=== PATIENT | female | born 2000 | race Two or more races ===

== ENCOUNTER 2024-03-23 12:33 | Outpatient (REF) | payer MEDICAID, SELFPAY ==
--- NOTE | ~2024-03-23 | XR_ITS ---
EXAMINATION: XR HAND, RIGHT CLINICAL INFORMATION: Right hand pain and swelling. Tenderness at the fifth metacarpal after trauma. Question boxer's fracture. COMPARISON: None available. TECHNIQUE: PA, lateral, and oblique views of the right hand. FINDINGS: There is an oblique transverse fracture of the fifth metacarpal shaft distally with slight apex dorsal and apex medial angulation with surrounding soft tissue swelling. No intra-articular extension. No additional fractures are identified. Joints appear well-preserved. No erosions. No soft tissue calcifications. XR/XR hand RT min 3V IMPRESSION: Oblique transverse fracture of the fifth metacarpal shaft with slight apex dorsal and apex medial angulation. Electronically signed by: Zechariah Gonzalez MD 03/23/2024 03:40 PM EDT RP
== END 2024-03-23 12:34 | disposition home or self-care (01) ==
LOC: HO.HHCX 12:33
PROVIDERS: Visit Provider Nurse Practitioner Family
DX: M79.641 Pain in right hand (principal)
CPT/HCPCS: 73130

== ENCOUNTER 2024-06-03 12:29 | Outpatient (REF) | payer MEDICAID, SELFPAY ==
[2024-06-04 14:48] LABS: Adenovirus PCR Not Detected (Not Detect.); Bordetella parapertussis PCR Not Detected (Not Detect.); Bordetella pertussis PCR Not Detected (Not Detect.); Chlamydia pneumoniae PCR Not Detected (Not Detect.); Coronavirus 229E PCR Not Detected (Not Detect.); Coronavirus HKU1 PCR Not Detected (Not Detect.); Coronavirus NL63 PCR Not Detected (Not Detect.); Coronavirus OC43 PCR Not Detected (Not Detect.); Human metapneumovirus PCR Not Detected (Not Detect.); Influenza A PCR Not Detected (Not Detect.); Influenza B PCR Not Detected (Not Detect.); Mycoplasma pneumoniae PCR Not Detected (Not Detect.); Parainfluenza 1 PCR Not Detected (Not Detect.); Parainfluenza 2 PCR Not Detected (Not Detect.); Parainfluenza 3 PCR Not Detected (Not Detect.); Parainfluenza 4 PCR Not Detected (Not Detect.); RSV PCR Not Detected (Not Detect.); Rhino/Enterovirus PCR Not Detected (Not Detect.)
[2024-06-04 14:57] LABS: SARS-CoV-2 PCR Not Detected (Not Detect.)
== END 2024-06-03 12:30 | disposition home or self-care (01) ==
LOC: HO.HHCLNP 12:29
PROVIDERS: Visit Provider Emergency Medicine
DX: R05.9 Cough, unspecified (principal)
CPT/HCPCS: 87633

== ENCOUNTER 2024-06-04 09:36 | Outpatient (REF) | payer MEDICAID, SELFPAY ==
--- NOTE | ~2024-06-04 | XR_ITS ---
EXAMINATION: XR CHEST CLINICAL INFORMATION: Productive cough. Fever. COMPARISON: Most recent chest radiograph dated 09/23/2017. TECHNIQUE: 2 views of the chest were obtained. FINDINGS: Right middle lobe atelectasis versus early pneumonia, new when compared to the prior examination. No pleural effusion or pneumothorax. Stable cardiomediastinal silhouette. XR/XR chest 2V IMPRESSION: Right middle lobe atelectasis versus early pneumonia, new when compared to the prior examination. Electronically signed by: Arun Alicea MD 06/04/2024 03:01 PM GINGER
== END 2024-06-04 09:37 | disposition home or self-care (01) ==
LOC: HO.HHCX 09:36
PROVIDERS: Visit Provider Emergency Medicine
DX: R05.1 Acute cough (principal)
CPT/HCPCS: 71046

== ENCOUNTER 2025-04-06 11:49 | Outpatient (REF) | payer MEDICAID, SELFPAY ==
--- OUTSIDE RECORDS SUMMARY | 2025-04-06 14:55 | XMS_ITS | Clinical Summary ---
Author Organization [employer] Address [address] [place] [address] Care Team Providers Care Information Tech Name Role Phone Melisa Adhikari NP Primary Care Provider [phone] Allergies No known active allergies Medications Sod Fluoride-Potass ium Nitrate 1.1-5 % pasteIndication s:Dental caries Morning View teeth for 2 minutes, morning and night. Spit, do not rinse. Do not eat or drink anything for 30 minutes following brushing. 112 g 3 4 Active chlorhexidine (Peridex) 0.12 % solution Swish 15 mL morning and night for 1 minute. Spit, do not swallow. Do not eat or drink for 30 minutes following use. 473 mL 4 Active fluticasone (Flonase) 50 MCG/ACT nasal spray Administer 1 spray into each nostril Once per day for 14 days. 16 g 4 Active Spacer/Aero-Hol ding Chambers (OptiChamber Latosha) misc 1 each every 4 (four) hours if needed (asthma). 1 each 4 Active albuterol 108 (90 Base) MCG/ACT inhaler Inhale 2 puffs every 4 (four) hours if needed for wheezing or shortness of breath. 18 g 1 4 06/03/20 25 Active azithromycin (Zithromax Z-Hussain) 250 MG tablet Take 2 tablets once on day 1, then 1 tablet 1x/day for 4 days. 6 tablet 4 Active ibuprofen 800 MG tablet Take 1 tablet (800 mg) by mouth every 6 (six) hours if needed for mild pain. 90 tablet 1 4 03/25/20 25 Active Problems Problem Noted Date Diagnosed Date Complaint of panic attack 07/07/2024 Panic attacks 07/07/2024 Assessment & Plan (07/07/2024 6:13 PM EST): Pt with isolated bouts of sob and atypical chest pain, no baseline cardiac symptoms or hx Reviewed ddx of tachyarrythmia, resp source or panic. Pt associates these self limiting events with panic, will monitor. Denies baseline anxiety symptoms. Reviewed breathing exercises. Pt will record any additional episodes or symptoms. Should these bouts increase, will order holter. Subacute maxillary sinusitis 06/01/2024 Assessment & Plan (06/01/2024 4:00 PM EST): Most likely viral, she will start meds today, if not improve within 24h, she will start Augmentin x 7d. Rest (sleep at least 8 hours a night). Out of work tomorrow. Hydrate with plenty of water (avoid caffeine and alcohol). Use saline nose drops to loosen mucus + Flonase bid x 1w Take Acetaminophen (Tylenol )/Ibuprofen as needed to reduce fever, headache, body aches or discomfort Gargle with salt water and use throat sprays/lozenges for throat pain. Use heated, humidified air. If you do not have a humidifier, take hot showers. Boxer's metacarpal fracture, neck, closed 2023 Assessment & Plan (03/24/2024 2:41 PM EDT): Wet read consistent with boxer's fracture, Patient was splinted with a temporary splint provided by [facility] and added minal bandage for stabilization. [facility] to [facility] emergency room for fracture management and appropriate splinting. Right hand pain 03/23/2024 Assessment & Plan (03/23/2024 12:55 PM EDT): X-ray consistent with boxer's fracture, possibly displaced. Pt referred to ER, expect called, wrist brace applied, as well as modified minal bandage wrap. Encounters Date Type Department Care Team Description 03/31/2025 Telephone [facility] [address] [place] [phone] Melisa Adhikari NP 03/30/2025 Telephone [facility] [address] [place] [address] Melisa Adhikari NP from Last 3 Months Immunizations Immunization Administration Dates Next Due DTaP, 5 pertussis antigens 09/10/2003,,1999,05/31,1999 HPV, Quadrivalent 06/11/2012,12/10/2011,10/08/19 12 Hep A, ped/adol, 2 dose 04/21/2015,05/12/2014 Hep B, Adolescent or Pediatric 1999,1999,1999 Hep B, adult 07/02/2023 Hib (PRP-T) 04/17/2000, 0,1999,03/08 IPV 09/10/2003, 0,1999,03/08 Influenza injectable quadriv alent IIV4 with preservative 04/21/2015,05/12/2014 Influenza injectable quadriv alent preservative free 05/17/2020 Influenza, IIV3, injectable 05/17/2020 MMR 09/10/2003,01/17/2000 Meningococcal MCV4P ACYW-135 11/13/2016,10/05/19 11 Novel [id number], all formulations 05/20/2009 Pneumococcal Conjugate PCV 7 09/04/2000,04/17/20 00 Tdap 03/02/2020,10/04/2010 Varicella 10/15/2007,01/17/2000 Social History Tobacco Use Types Packs/Day Years Used Date Smoking Tobacco: Never Passive Smoke Exposure: Never Smokeless Tobacco: Never Tobacco Cessation:Counseling Given: Not Answered Alcohol Use Standard Drinks/Week Comments Not Currently 0 (1 standard drink = 0.6 oz pur e alcohol) Comments Unknown Sex and Gender Information Value Date Recorded Sex Assigned at Female 04/30/2022 10:33 AM EDT Legal Sex Female 10:33 AM EDT Gender Identity Female 09/16/2023 3:05 PM EDT Sexual Orientation Straight 09/16/2023 2: 51 PM EDT Last Filed Vital Signs Vital Sign Reading Time Taken Comments Blood Pressure 112/84 08/03/2024 4:50 PM EST Pulse 80 08/03/2024 4:50 PM EST Temperature 36.1 C (96.9 F) 08/03/2024 4:50 PM EST Respiratory Rate 18 08/03/2024 4:50 PM EST Oxygen Saturation 97% 08/03/2024 4:50 PM EST Inhaled Oxygen Concentration - - Weight 83 kg (183 lb) 08/03/2024 4:50 PM EST Height 166.4 cm (5' 5.5 ) 06/03/2024 7:41 PM EST Body Mass Index 29.99 06/03/2024 7:41 PM EST Plan of Treatment Upcoming Encounters Date Type Department Care Team (Late st Contact Info) Description 06/04/2025 1:45 PM EST Office Visit [facility] [address], [place] [phone] Melisa Adhikari NP [address], [place] [phone] Health Maintenance Due Date Last Done Comments Dental Prophylaxis 1999 Depression Screening 1999 HIV Screening 1999 SDOH Screening 1999 Disability Screening 1999 Alcohol/Substance Use Screening 2011 Family Planning (PISQ) 2014 Hepatitis C Screening 2017 Pap Smear 12/30/2023 12/29/2020 Dental Oral Exam 03/20/2024 09/17/2023 Dental X-Ray: Bitewings 09/17/2024 09/17/2023 COVID-19 Vaccine ( season) 2025 11/11/2020, 10/14/2020 Influenza Vaccine (#1) 2025 , 05/17/2020, 04/21/2015, Additional history exists Tobacco Screening 08/03/2025 08/03/2024 Dental X-Ray: Full Mouth 09/17/2026 09/17/2023, 10/31 DTaP/Tdap/Td Vaccines (8 - Td or Tdap) 03/02/2030 03/02/2020, 10/04/2010, 09/10/2003, Additional history exists Zoster Vaccines (1 of 2) 2049 RSV Patients and Patients Aged 60 years or older (1 - 1-dose 75+ series) 2074 HIB Vaccines Completed 04/17/2000, 09/1999, 1999, Additional history exists Pneumococcal Vaccine: Pediatrics (0 to 5 Years) and At-Risk Patients (6 to 49) Years Aged Out 09/04/2000, 04/17/2000 No longer eligibl e based on patient's age to complete this topic IPV Vaccines Completed 09/10/2003, 12/29, 1999, Additional history exists HPV Vaccines Completed 06/11/2012, 11/29, 10/08/2011 Hepatitis A Vaccines Completed 04/21/2015, 05/12/20 14 Meningococcal Vaccine Completed 11/13/2016, 011 Hepatitis B Vaccines Completed 07/02/2023, 1999, 1999, Additional history exists Meningococcal B Vaccine Aged Out No l onger eligible based on patient's age to complete this topic RSV under 20 months Aged Out No longe r eligible based on patient's age to complete this topic Rotavirus Vaccines Aged Out No longer eligible based on patient's age to complete this topic Procedures Procedure Name Priority Date/Time Associated Diagnosis Comments INTRAORAL - COMPLETE SERIES OF RADIOGRAPHIC IMAGES Routine 09/17/2023 2:30 PM EDT Gingivitis Symptomatic irreversible pulpitis Dental caries COMPREHENSIVE ORAL EVALUATION - NEW OR ESTABLISHED PATIENT Routine 09/17/2023 2:30 PM EDT Gingivitis Symptomatic irreversible pulpitis Dental caries HM PAP/HPV Routine 12/29/2020 3:05 PM EDT from Last 3 Months or Most Recently Relevant to Health Maintenance Results * HM PAP/HPV (12/29/2020 3:05 PM EDT) us Historical Provider HEALTH MAINTENANCE Final Result from Last 3 Months or Most Recently Relevant to Health Maintenance Insurance * Guarantor: Rafaela Lubin Account Type Relation to Patient Date of Phone Billing Address Personal/Family Self 2000 [address] [place] [address] HSN PARTIAL DENTAL - HSN PARTIAL (MEDICAID) Care Teams Information Tech Relationship Specialty Start Date End Date Melisa Adhikari NP [address] [place] [phone] PCP - General Family Medicine 03/23/24
--- OUTSIDE RECORDS SUMMARY | 2025-04-06 14:55 | XMS_ITS | Clinical Summary ---
Author Organization [facility] Address [address] [place] [address] Phone Care Team Providers Care Legal Investigator Name Role Phone Melisa Adhikari NP Primary Care Provider [phone] Allergies No known active allergies Medications No known medications Social History Tobacco Use Types Packs/Day Years Used Date Smoking Tobacco: Never Assessed Education Answer Date Recorded Are you interested in more education? Not on sakshi e 03/25/2024 Are you concerned about learning? Not on file 03/25/2024 No 03/25/2024 No 03/25/2024 Digital Access Answer Date Recorded No 03/25/2024 No 03/25/2024 Reliable internet access at home? Not on file 03/25/2024 Device with a working camera? Not on file Comments Unknown Sex and Gender Information Value Date Recorded Sex Assigned at Not on file Legal Sex Female 3:58 PM EDT Gender Identity Not on file Sexual Orientation Not on file Plan of Treatment Health Maintenance Due Date Last Done Comments DEPRESSION SCREENING 2011 SMOKING Hx and SMOKELESS TOBACCO SCREENING 01/04/2012 HPV VACCINES (1 - 3-dose series) 2014 HEPATITIS A VACCINES (2 of 2 - 2-dose series) 10/21/2015 04/21/2015 HEPATITIS C SCREENING 2017 HIV ONE-TIME SCREENING (18-6 5 YEARS) 2017 PAP SMEAR 01/04/2020 INFLUENZA VACCINE (#1) 2025 , 04/21/2015 COVID-19 VACCINE (3 - 2024-2 6 season) 2025 11/11/2020, 10/14/2020 Adult Td,Tdap Booster 03/02/2030 03/02/2020 MENINGOCOCCAL VACCINES (ACWY) Completed 11/13/2016 HIB VACCINES Aged Out No longer eligi ble based on patient's age to complete this topic MENINGOCOCCAL VACCINES (B) Aged Out N o longer eligible based on patient's age to complete this topic PNEUMOCOCCAL VACCINES (0-49 years) Aged Out No longer eligible b ased on patient's age to complete this topic Medical Devices Not on file Insurance [employer] SAFETY NET PARTIAL SAFETY NET PARTIAL SAFETY NET PARTIAL HEALTH SAFETY NET PARTIAL HEALTH SAFETY NET PARTIAL HEALTH SAFETY NET PARTIAL Care Teams Legal Investigator Relationship Specialty Start Date End Date Melisa Adhikari NP PCP - General Nurse Practitioner 03/24/24 Additional Source Comments The information contained in this document represents components of the legal health record. It is not the complete legal health record.[facility]
--- OUTSIDE RECORDS SUMMARY | 2025-04-06 14:55 | XMS_ITS | Encounter Summary ---
Author Organization [employer] [facility] Address [address] [place] [address] Care Team Providers Care Director Of Email Marketing Name Role Phone Melisa Adhikari NP Primary Care Provider [phone] Encounter Details Date Type Department Care Team (Late st Contact Info) Description 04/16/2024 Orders Only [facility] [address] [place] [address] [phone] Provider, MD Vinicio Social History Tobacco Use Types Packs/Day Years Used Date Smoking Tobacco: Never Passive Smoke Exposure: Never Smokeless Tobacco: Never Alcohol Use Standard Drinks/Week Comments Not Currently 0 (1 standard drink = 0.6 oz pur e alcohol) Comments Unknown Sex and Gender Information Value Date Recorded Sex Assigned at Female 04/30/2022 10:33 AM EDT Legal Sex Female 10:33 AM EDT Gender Identity Female 09/16/2023 3:05 PM EDT Sexual Orientation Straight 09/16/2023 2: 51 PM EDT documented as of this encounter Plan of Treatment Upcoming Encounters Date Type Department Care Team (Late st Contact Info) Description 06/04/2025 1:45 PM EST Office Visit [facility] [address] [place] [phone] Melisa Adhikari NP [address] [place] [address] documented as of this encounter Procedures Procedure Name Priority Date/Time Associated Diagnosis Comments HM PAP/HPV Routine 12/29/2020 3:05 PM EDT documented in this encounter Results * HM PAP/HPV (12/29/2020 3:05 PM EDT) Historical Provider HEALTH MAINTENANCE Final Result documented in this encounter Visit Diagnoses Not on filedocumented in this encounter Care Teams Director Of Email Marketing Relationship Specialty Start Date End Date Melisa Adhikari NP [address] [place] [address] PCP - General Family Medicine 03/23/24 documented as of this encounter
--- OUTSIDE RECORDS SUMMARY | 2025-04-06 14:55 | XMS_ITS | Encounter Summary ---
Author Organization [employer] Address [address] [place] [address] Care Team Providers Care Safety Council Director Name Role Phone Melisa Adhikari NP Primary Care Provider [phone] Encounter Details Date Type Department Care Team (Late st Contact Info) Description 06/05/2024 Orders Only [facility] [address] [place] [phone] Bob Carpio MD [address] [place] [phone] Social History Tobacco Use Types Packs/Day Years [...] Encounters Date Type Department Care Team (Late Contact Info) Description 06/04/2025 1:45 PM EST Office Visit [facility] [address] [place] [phone] Melisa Adhikari NP [address] [place] [address] documented as of this encounter Visit Diagnoses Not on filedocumented in this encounter Care Teams Safety Council Director Relationship Specialty Start Date End Date Melisa Adhikari NP [address] [place] [phone] PCP - General Family Medicine 03/23/24 documented as of this encounter
[2025-04-09 08:13] LABS: TS Negative Control Passed; TS Panel A 0; TS Panel B 1; TS Positive Control Passed; TSpotTB Negative (Negative)
== END 2025-04-06 11:50 | disposition home or self-care (01) ==
LOC: HO.HHCL 11:49
PROVIDERS: PCP Nurse Practitioner Family; Visit Provider Nurse Practitioner Family
DX: Z11.1 Encounter for screening for respiratory tuberculosis (principal)
CPT/HCPCS: 36415; 86481